=== PATIENT | female | born 1990 | race Hispanic/Latino ===

== ENCOUNTER 2017-06-03 15:40 | Outpatient (CLI) | payer MEDICAID | END 2017-06-03 18:26 | disposition home or self-care (01) | LOC: LAB 15:40 → TRG 17:42 → LAB 18:26 | PROVIDERS: ATTEND Obstetrics & Gynecology | DX: O36.0130 Maternal care for anti-D [Rh] antibodies, third trimester, not applicable or unspecified (principal); Z3A.28 28 weeks gestation of pregnancy | CPT/HCPCS: 86850; 86900; 86901; 96372; J2790 ==